=== PATIENT | male | born 1960 | race Caucasian/White ===

== ENCOUNTER 2022-12-16 14:37 | Outpatient (REF) | payer MEDICAID, SELFPAY ==
[2022-12-16 15:51] LABS: ALT 39 U/L (16-63); AST 28 U/L (15-37); Albumin 3.8 g/dL (3.4-5.0); Alkaline Phosphatase 76 U/L (46-116); Anion Gap 10.6 mmol/L (3-11); BUN 15 mg/dL (7-18); Bilirubin, Total 0.9 mg/dL (0.2-1.0); CO2 25.4 mmol/L (21.0-32.0); CREATININE 0.9 mg/dL (0.70-1.30); Calcium 8.9 mg/dL (8.5-10.1); Calculated LDL 126 mg/dL (<100); Chloride 104 mmol/L (98-107); Cholesterol 195 mg/dL (<200); Estimated GFR 95.97 (mL/min/1.73m2); Glucose 101 mg/dL (74-106); HDL Cholesterol 44 mg/dL (40-60); Potassium 4.3 mmol/L (3.5-5.1); Sodium 140 mmol/L (136-145); Total Protein 7.8 g/dL (6.4-8.2); Triglyceride 129 mg/dL (<150)
[2022-12-16 23:14] LABS: PSA, Screening 1.3 ng/mL (<=4.5)
== END 2022-12-16 14:38 | disposition home or self-care (01) ==
LOC: NCHCN 14:37
PROVIDERS: Visit Provider Physician Assistant Medical
DX: I10 Essential (primary) hypertension (principal); Z12.5 Encounter for screening for malignant neoplasm of prostate
CPT/HCPCS: 80053; 80061; 84153

== ENCOUNTER 2023-02-24 09:07 | Outpatient (REF) | payer MEDICAID, SELFPAY ==
[2023-02-24 15:30] LABS: Anion Gap 7.1 mmol/L (3-11); BUN 16 mg/dL (7-18); CO2 26.9 mmol/L (21.0-32.0); CREATININE 0.7 mg/dL (0.70-1.30); Calcium 8.9 mg/dL (8.5-10.1); Chloride 107 mmol/L (98-107); Estimated GFR 103.53 (mL/min/1.73m2); Glucose 92 mg/dL (74-106); Potassium 4.5 mmol/L (3.5-5.1); Sodium 141 mmol/L (136-145)
== END 2023-02-24 09:08 | disposition home or self-care (01) ==
LOC: NCHCN 09:07
PROVIDERS: PCP Physician Assistant Medical; Visit Provider Physician Assistant Medical
DX: I10 Essential (primary) hypertension (principal)
CPT/HCPCS: 80048

== ENCOUNTER 2023-11-28 10:01 | Outpatient (REF) | payer MEDICAID, SELFPAY ==
[2023-11-28 15:58] LABS: ALT 35 U/L (16-63); AST 26 U/L (15-37); Albumin 3.7 g/dL (3.4-5.0); Alkaline Phosphatase 93 U/L (46-116); Anion Gap 7.6 mmol/L (3-11); BUN 15 mg/dL (7-18); Bilirubin, Total 0.5 mg/dL (0.2-1.0); CO2 28.4 mmol/L (21.0-32.0); CREATININE 0.8 mg/dL (0.70-1.30); Calcium 9.2 mg/dL (8.5-10.1); Calculated LDL 108 mg/dL (<100); Chloride 106 mmol/L (98-107); Cholesterol 183 mg/dL (<200); Estimated GFR 98.83 (mL/min/1.73m2); Glucose 109 mg/dL (74-106); HDL Cholesterol 45 mg/dL (40-60); Potassium 5.3 mmol/L (3.5-5.1); Sodium 142 mmol/L (136-145); Total Protein 7.5 g/dL (6.4-8.2); Triglyceride 153 mg/dL (<150)
== END 2023-11-28 10:02 | disposition home or self-care (01) ==
LOC: NCHCN 10:01
PROVIDERS: PCP Physician Assistant Medical; Visit Provider Physician Assistant Medical
DX: M25.562 Pain in left knee (principal); I10 Essential (primary) hypertension; Z01.818 Encounter for other preprocedural examination; Z01.812 Encounter for preprocedural laboratory examination
CPT/HCPCS: 80053; 80061

== ENCOUNTER 2023-12-21 09:02 | Outpatient (REF) | payer MEDICAID, SELFPAY ==
[2023-12-21 16:24] LABS: Absolute Basophil Count 0.05 10^3/uL (0.0-0.2); Absolute Eosinophil Count 0.25 10^3/uL (0.0-0.7); Absolute Lymphocyte Count 1.98 10^3/uL (1.2-3.4); Absolute Monocyte Count 0.46 10^3/uL (0.1-0.8); Absolute Neutrophil Count 2.82 10^3/uL (1.2-6.7); Basophils % 0.9 %; Eosinophils % 4.5 %; HCT 44.2 % (40.0-50.0); HGB 15.2 g/dL (13.5-17.5); Lymphocytes % 35.6 %; MCHC 34.4 % (32.0-36.0); MCV 90 fL (80-95); MPV 10.6 fL (8.0-11.0); Monocytes % 8.3 %; Neutrophils % 50.7 %; Platelet Count 193 10^3/uL (130-400); RBC 4.91 10^6/uL (4.36-5.78); RDW-SD 39.4 fL; WBC 5.56 10^3/uL (4.4-10.8)
== END 2023-12-21 09:03 | disposition home or self-care (01) ==
LOC: NCHCN 09:02
PROVIDERS: PCP Physician Assistant Medical; Visit Provider Physician Assistant Medical
DX: Z01.812 Encounter for preprocedural laboratory examination (principal); M25.562 Pain in left knee
CPT/HCPCS: 85025